=== PATIENT | male | born 1995 | race Caucasian/White ===

== ENCOUNTER 2016-10-25 23:50 | Emergency (ER) | payer BC ==
[2016-10-25 20:21] LABS: ASCORBIC ACID (UR NOT ORDER) NEG (NEG); BILIRUBIN, URINE NEGATIVE (NEG); ER URINALYSIS TAT 0 Hrs 18 Mins; KETONE, URINE NEGATIVE (NEG); LEUKOCYTE ESTERASE(NOT OR NEG (NEG); NITRITE (URINE) NEG (NEG); WBC (NOT ORDERED) (RFLEX) 1 (0-5)
[2016-10-25 21:57] LABS: CHLAMYDIA TRACH PCR NOT DETECTED (NOT DETEC); GC PCR NOT DETECTED (NOT DETECT); SOURCE: MALE URINE
== END 2016-10-26 | disposition home or self-care (01) ==
LOC: ER 23:50
PROVIDERS: Nurse Practitioner
DX: B35.6 Tinea cruris (principal); L30.9 Dermatitis, unspecified; Z88.0 Allergy status to penicillin
CPT/HCPCS: 81001; 82962; 87491; 87591; 99283